=== PATIENT | female | born 1970 | race Caucasian/White ===

== ENCOUNTER 2018-10-07 14:37 | Emergency (ER) | payer OTHER ==
[2018-10-07 15:56] VITALS: BP 153/96
--- NOTE | 2018-10-07 16:27 | UC ---
UC General HPI - HPI Summary HPI Summary: Pain to L upper and lower molars plus L lower jaw with swelling x 4 days. no self tx with pain medication - History of Current Complaint Chief Complaint: UCDentalProblem Stated Complaint: TOOTH COMP Time Seen by Provider: 10/07/18 16:20 Hx Obtained From: Patient Hx Last Menstrual Period: 09/14/18 Onset/Duration: Gradual Onset Timing: Constant Pain Intensity: 7 Associated Signs & Symptoms: Negative: Fever - Allergy/Home Medications Allergies/Adverse Reactions: Allergies Allergy/AdvReac Type Severity Reaction Status Date / Time morphine Allergy Intermediate Hives Verified 10/07/18 15:56 Penicillins Allergy Intermediate Hives Verified 10/07/18 15:56 Home Medications: Home Medications Albuterol/Ipratropium RESP(NF) [Combivent Respimat(NF)] 1 aer IN QID 10/07/18 [ History Confirmed 10/07/18] Loratadine [Claritin] 10 mg PO DAILY 10/07/18 [History Confirmed 10/07/18] Montelukast Sodium TAB* [Singulair TAB*] 10 mg PO BEDTIME 10/07/18 [History Confirmed 10/07/18] Quetiapine Fumarate [Seroquel 200 MG] 1 tab PO TID 10/07/18 [History Confirmed 10/07/18] PMH/Surg Hx/FS Hx/Imm Hx - Additional Past Medical History Additional PMH: allergies Respiratory History: Asthma Other Psychological History: on seroquel - Surgical History Surgical History: Yes Surgery Procedure, Year, and Place: TUBAL LIGATION, LIPOMA REMOVED FROM Lt SHOULDER - Family History Known Family History: Positive: None - Social History Alcohol Use: None Alcohol Amount: denies this visit Substance Use Type: None Smoking Status (MU): Light Every Day Tobacco Smoker Type: Cigarettes Amount Used/How Often: 2 CIGS A DAY Have You Smoked in the Last Year: Yes Review of Systems All Other Systems Reviewed And Are Negative: Yes ENT: Positive: Dental Pain Physical Exam Triage Information Reviewed: Yes Appearance: Well-Appearing Vital Signs: Initial Vital Signs Temp 98.1 F 10/07/18 15:52 Pulse 78 10/07/18 15:52 Resp 17 10/07/18 15:52 BP 153/96 10/07/18 15:52 Pulse Ox 96 10/07/18 15:52 Vital Signs Reviewed: Yes Eyes: Positive: Conjunctiva Clear ENT: Positive: Pharynx normal, TMs normal. Negative: Nasal congestion, Nasal drainage Dental: Positive: Percussion Tenderness @ - L lower molar. Adjacent jaw with slight swelling but not fluctuant. Neck: Positive: Supple, Nontender, No Lymphadenopathy Respiratory: Positive: Lungs clear, Normal breath sounds Cardiovascular: Positive: RRR, No Murmur Abdomen Description: Positive: Nontender, No Organomegaly, Soft Bowel Sounds: Positive: Present Musculoskeletal: Positive: ROM Intact Neurological: Positive: Alert Psychological: Positive: Age Appropriate Behavior Skin Exam: Normal Course/Dx - Course Course Of Treatment: [place] [employer], negative search results - Diagnoses Provider Diagnosis: Gum abscess, Pain, dental Discharge - Sign-Out/Discharge Documenting (check all that apply): Patient Departure All imaging exams completed and their final reports reviewed: No Studies - Discharge Plan Condition: Stable Disposition: HOME Prescriptions: Clindamycin Cap(NF) [Clindamycin Cap 300 mg Cap(NF)] 300 mg PO Q6H 10 Days #40 cap Naproxen [Naprosyn 500 mg tab] 500 mg PO BID 5 Days #10 tablet Patient Education Materials: Dental Abscess (ED), Toothache (ED) Referrals: Madina Musa MD [Primary Care Provider] - As Soon As Possible Additional Instructions: DENTAL LIST GIVEN. FOLLOW UP WITH DENTAL SOON POSSIBLE. - Billing Disposition and Condition Condition: STABLE Disposition: Home - Attestation Statements Provider Attestation: I was available for consult. This patient was seen by the [facility]. The patient was not presented to, seen by, or examined by me. -Tala
== END 2018-10-07 16:43 | disposition home or self-care (01) ==
LOC: UCCORT 14:37
DX: K08.89 Other specified disorders of teeth and supporting structures (principal); F17.210 Nicotine dependence, cigarettes, uncomplicated; J45.909 Unspecified asthma, uncomplicated; K05.219 Aggressive periodontitis, localized, unspecified severity; Z88.0 Allergy status to penicillin; Z88.5 Allergy status to narcotic agent
CPT/HCPCS: 99212; G0463

== ENCOUNTER 2019-08-31 15:33 | Emergency (ER) | payer OTHER ==
[2019-08-31 16:01] VITALS: BP 121/98
--- NOTE | 2019-08-31 16:17 | UC ---
Respiratory Complaint HPI - HPI Summary HPI Summary: 48-year-old female who has had cough and cold symptoms for approximately 2 weeks with some sinus congestion and pressure and now coughing up purulent sputum. She does have a history of asthma however she continues to smoke approximately 2 cigarettes per day. - History of Current Complaint Chief Complaint: UCGeneralIllness Stated Complaint: COUGH Time Seen by Provider: 08/31/19 15:58 Hx Obtained From: Patient Hx Last Menstrual Period: 2 wks ago ?: No Onset/Duration: Gradual Onset Timing: Intermittent Episodes Severity Initially: Mild Severity Currently: Mild Pain Intensity: 0 Character: Cough: Productive Aggravating Factors: Deep Breaths Alleviating Factors: Bronchodilator Associated Signs And Symptoms: Positive: Fever, Wheezing, URI, Nasal Congestion , Sinus Discomfort - Allergies/Home Medications Allergies/Adverse Reactions: Allergies Allergy/AdvReac Type Severity Reaction Status Date / Time morphine Allergy Intermediate Hives Verified 08/31/19 15:55 Penicillins Allergy Intermediate Hives Verified 08/31/19 15:55 Home Medications: Home Medications Albuterol/Ipratropium RESP(NF) [Combivent Respimat(NF)] 1 aer IN QID 10/07/18 [ History Confirmed 08/31/19] Loratadine [Claritin] 10 mg PO DAILY 10/07/18 [History Confirmed 08/31/19] Montelukast Sodium TAB* [Singulair TAB*] 10 mg PO BEDTIME 10/07/18 [History Confirmed 08/31/19] Quetiapine Fumarate [Seroquel 200 MG] 1 tab PO TID 10/07/18 [History Confirmed 08/31/19] Albuterol HFA INHALER* [Ventolin HFA Inhaler*] 2 puff INH Q4H PRN 5 Days #1 mdi 08/31/19 [Rx] DOXYcycline CAP(*) [DOXYcycline 100MG CAP(*)] 100 mg PO BID 10 Days #20 cap [Rx] predniSONE 10 mg TAB [Deltasone 10 MG TAB*] 10 mg PO DAILY 12 Days #30 tab 08/31 [Rx] PMH/Surg Hx/FS Hx/Imm Hx Previously Healthy: Yes Respiratory History: Asthma - Surgical History Surgical History: Yes Surgery Procedure, Year, and Place: TUBAL LIGATION, LIPOMA REMOVED FROM Lt SHOULDER - Family History Known Family History: Positive: None - Social History Occupation: Employed Part-time Alcohol Use: Weekly Alcohol Amount: denies this visit Substance Use Type: None Smoking Status (MU): Light Every Day Tobacco Smoker Type: Cigarettes Amount Used/How Often: 2 CIGS A DAY Have You Smoked in the Last Year: Yes Review of Systems All Other Systems Reviewed And Are Negative: Yes Constitutional: Positive: Fever ENT: Positive: Nasal Discharge, Sinus Congestion, Sinus Pain/Tenderness Respiratory: Positive: Cough - Productive cough of purulent sputum Is Patient Immunocompromised?: No Physical Exam Triage Information Reviewed: Yes Appearance: Well-Appearing, No Pain Distress, Well-Nourished Vital Signs: Initial Vital Signs Temp 97.3 F 08/31/19 15:57 Pulse 85 08/31/19 15:57 Resp 16 08/31/19 15:57 BP 121/98 08/31/19 15:57 Pulse Ox 97 08/31/19 15:57 Vital Signs Reviewed: Yes Eyes: Positive: Conjunctiva Clear ENT: Positive: Pharynx normal - Purulent yellow postnasal drainage, Nasal congestion, Nasal drainage, TMs normal, Sinus tenderness - Mild tenderness frontal sinuses bilaterally, Uvula midline Neck: Positive: Supple, Nontender, No Lymphadenopathy Respiratory: Positive: No respiratory distress, No accessory muscle use, Rhonchi , Wheezing - Very mild wheezing and rhonchi with forced expiration, no distress Cardiovascular: Positive: RRR, No Murmur, Pulses Normal, Brisk Capillary Refill Musculoskeletal Exam: Normal Neurological Exam: Normal Psychological Exam: Normal Skin Exam: Normal Respiratory Course/Dx - Course Course Of Treatment: Patient is comfortable here and in no distress. I'm going to refill her albuterol inhaler to use 2 puffs every 4-6 hours as needed for wheezing. I am going to treat her with doxycycline for sinusitis and prednisone taper for bronchitis. She is to follow-up with her primary care provider if no improvement by early next week. - Differential Dx/Diagnosis Provider Diagnosis: Sinusitis, Bronchitis Discharge ED - Sign-Out/Discharge Documenting (check all that apply): Patient Departure All imaging exams completed and their final reports reviewed: No Studies - Discharge Plan Condition: Good Disposition: HOME Prescriptions: Albuterol HFA INHALER* [Ventolin HFA Inhaler*] 2 puff INH Q4H PRN 5 Days #1 mdi PRN Reason: Wheezing DOXYcycline CAP(*) [DOXYcycline 100MG CAP(*)] 100 mg PO BID 10 Days #20 cap predniSONE 10 mg TAB [Deltasone 10 MG TAB*] 10 mg PO DAILY 12 Days #30 tab Patient Education Materials: Acute Bronchitis (ED) Referrals: Madina Musa MD [Primary Care Provider] - Additional Instructions: Increase fluids, take the prednisone with food, no dairy products, antacids or multivitamins 2 hours before you take the doxycycline and 2 hours after however take it with food. Definite follow-up with your primary care provider if no improvement in 3-4 days. - Billing Disposition and Condition Condition: GOOD Disposition: Home - Attestation Statements Provider Attestation: Per institutional requirements, I have reviewed the chart, however, I was not consulted specifically or made aware of this patient by the midlevel provider. I did not personally evaluate, interact with, or disposition this patient. EK
== END 2019-08-31 16:24 | disposition home or self-care (01) ==
LOC: UCCORT 15:33
DX: J32.9 Chronic sinusitis, unspecified (principal); J45.909 Unspecified asthma, uncomplicated; Z79.899 Other long term (current) drug therapy; Z88.0 Allergy status to penicillin; Z88.5 Allergy status to narcotic agent
CPT/HCPCS: 99212; G0463